=== PATIENT | male | born 1950 | race Hispanic/Latino ===

== ENCOUNTER 2020-08-25 10:43 | Inpatient (IN) | payer OTHER, SELFPAY ==
[2020-08-25] MEDS ORDERED: HYDRALAZINE HCL 20 MG/ML VIAL ONE (11:36)
[2020-08-25 11:41] LABS: Absolute Lymphocytes (CBC) 1.8 K/uL (0.7-4.9); Basophils % 0.7 % (0-1.3); Hematocrit 29.7 % (39.6-49.0); Lymphocytes % 22.2 % (15.3-44.8); MPV 9.2 fL (7.6-11.3); Protime INR 0.92; RBC Red Blood Cell Count 3.25 M/uL (4.33-5.43)
--- NOTE | 2020-08-25 11:48 | RAD REPORT ---
EXAM DESCRIPTION: CT - Head Brain Wo Cont - 08/25/2020 11:23 am CLINICAL HISTORY: Alteration of awareness/confusion COMPARISON: None TECHNIQUE: Computed axial tomography of the head was obtained. IV contrast was not requested. All CT scans are performed using dose optimization technique as appropriate and may include automated exposure control or mA/KV adjustment according to patient size. FINDINGS: An intracranial bleed is not seen . The ventricles are normal in caliber. No extra-axial fluid collection is noted. 3 centimeter low-density area posterior left frontal lobe. Low-density area left basal ganglia and left periventricular white matter has the appearance of old i nfarction. Fluid within the sinuses/ mastoids is not seen. IMPRESSION: 3 centimeter low-density area posterior left frontal lobe probably subacute infarction
[2020-08-25 11:56] LABS: ALT/SGPT 34 U/L (12-78); AST/SGOT 20 U/L (15-37); Albumin 3.6 g/dL (3.4-5.0); Alkaline Phosphatase 154 U/L (45-117); BUN Blood Urea Nitrogen 54 mg/dL (7-18); Bicarbonate 21 mmol/L (21-32); Bilirubin Direct < 0.1 mg/dL (0-0.2); Bilirubin Total 0.3 mg/dL (0.2-1.0); Glucose Level 345 mg/dL (74-106); Magnesium 2.3 mg/dL (1.8-2.4); NT PRO-BNP 7282 pg/mL (<125); Potassium 4.8 mmol/L (3.5-5.1); Protein, Total 7.3 g/dL (6.4-8.2); Sodium Level 137 mmol/L (136-145); Troponin (Emerg Dept Use Only) 0.03 ng/mL (0.0-0.045)
--- NOTE | 2020-08-25 12:35 | RAD REPORT ---
EXAM DESCRIPTION: US - UPPER EXTREMITY VENOUS UNILATE - 08/25/2020 11:59 am CLINICAL HISTORY: Right upper extremity swelling COMPARISON: None. FINDINGS: The right internal jugular, subclavian, brachial, axillary, cephalic, basilic, radial and ulnar veins demonstrate phasic signal. The veins are generally compressible. Doppler demonstrates good flow IMPRESSION: No evidence of thrombus involving the right upper extremity
--- NOTE | 2020-08-25 13:31 | RAD REPORT ---
EXAM DESCRIPTION: RAD - Chest Single View - 08/25/2020 1:22 pm CLINICAL HISTORY: altered mental status Chest pain. COMPARISON: No comparisons FINDINGS: Portable technique limits examination quality. The lungs are grossly clear. The heart is normal in size. No displaced fractures. IMPRESSION: No acute intrathoracic process suspected.
--- NOTE | 2020-08-25 13:31 | ER ---
Nurse's Notes [facility] Name: Mateo Head Age: 69 yrs Sex: Male : 1950 Arrival Date: 08/25/2020 Time: 10:53 Bed 2 Private MD: Diagnosis: Cerebral infarction;Unspecified kidney failure;Hypertensive heart disease Presentation: 08/25 10:54 Chief complaint: EMS states: His friend took him to the doctor because he's been jl7 altered x 2 days, only saying yes. Pt Polish speaking, reports via bass mechanism maker, inability to speak correctly x 6 days. Pt former dialysis pt, took himself off dialysis 1 month ago because he did not like it. 10:54 Care prior to arrival: IV initiated. 18 GA, in the left antecubital area, Glucose jl7 check: 400. 10:54 Acuity: BEVERLY 2 jl7 10:55 Coronavirus screen: Client denies travel out of the [place] in the last 14 days. At this sv time, the client does not indicate any symptoms associated with coronavirus-19. Ebola Screen: No symptoms or risks identified at this time. Risk Assessment: Do you want to hurt yourself or someone else? Patient reports no desire to harm self or others. Onset of symptoms was August 19, 2020. 10:55 Method Of Arrival: EMS: [facility] sv 10:57 Initial Sepsis Screen: Does the patient meet any 2 criteria? No. Patient's initial sv sepsis screen is negative. Does the patient have a suspected source of infection? No. Patient's initial sepsis screen is negative. Triage Assessment: 10:54 General: Appears in no apparent distress. uncomfortable, Behavior is cooperative, jl7 anxious. Pain: Denies pain. Neuro: Level of Consciousness is awake, alert, obeys commands, Oriented to person, place, time, situation, Speech with expressive aphasia noted, Facial symmetry appears normal. Cardiovascular: Patient's skin is warm and dry. Respiratory: Airway is patent Respiratory effort is even, unlabored, Respiratory pattern is regular, symmetrical. Derm: Skin is pink, warm \T\ dry. Historical: - Allergies: 10:57 No Known Allergies; sv - Home Meds: 10:57 atorvastatin 80 mg oral tab 1 tab nightly [Active]; Lasix 40 mg Oral tab 3 tabs once sv daily [Active]; Flomax 0.4 mg Oral cap 1 cap once daily [Active]; isosorbide mononitrate 30 mg Oral Tb24 1 tab once daily [Active]; - PMHx: 10:57 Hypertension; HD; sv 10:59 CVA; sv - Immunization history:: Client reports receiving the 2nd dose of the Covid vaccine, Client reports receiving the 1st dose of the Covid vaccine. - Social history:: Smoking status: Patient denies any tobacco usage or history of. Patient/guardian denies using alcohol. Screenin:56 Abuse screen: Denies threats or abuse. Denies injuries from another. Nutritional jl7 screening: No deficits noted. Tuberculosis screening: No symptoms or risk factors identified. Fall Risk IV access (20 points). Total Brewster Fall Scale indicates No Risk (0-24 pts). Assessment: 12:41 Reassessment: Patient appears in no apparent distress at this time. No changes from jl7 previously documented assessment. Patient and/or family updated on plan of care and expected duration. Pain level reassessed. Patient is alert, oriented x 3, equal unlabored respirations, skin warm/dry/pink. 14:25 Reassessment: Pt to MRI. sv Vital Signs: 10:54 BP 216 / 78; Pulse 71; Resp 15; Temp 97.7; Pulse Ox 100% ; Weight 68.04 kg; Pain 0/10; jl7 10:57 Pulse 73; Resp 16; Temp 97.7; Pulse Ox 100% ; Height 5 ft. 6 in. (167.64 cm); sv 11:30 BP 207 / 83; Pulse 70; Resp 18; Pulse Ox 100% ; sv 12:40 BP 186 / 88; Pulse 72; Resp 15; Pulse Ox 100% ; jl7 13:09 BP 195 / 82; Pulse 69; Resp 15; Pulse Ox 100% ; jl7 15:37 BP 180 / 86; Pulse 68; Resp 16; Pulse Ox 100% ; jl7 10:54 Body Mass Index 24.21 (68.04 kg, 167.64 cm) jl7 ED Course: 10:53 Patient arrived in ED. iw 10:53 Enrico Samuel PA is PHCP. cp 10:53 Enrico Cruz MD is Attending Physician. cp 10:55 Gabriela Henley RN is Primary Nurse. jl7 10:56 Patient has correct armband on for positive identification. Placed in gown. Bed in low jl7 position. Call light in reach. Side rails up X2. mailing specialist on. Pulse ox on. NIBP on. 10:57 Arm band placed on. sv 10:58 Maintain EMS IV. Dressing intact. Site clean \T\ dry. Gauge \T\ site: 18G L AC. sv 11:02 Triage completed. jl7 11:14 Initial lab(s) drawn, by me, sent to lab. First set of blood cultures drawn by me. jl7 11:15 EKG done, by ED staff, reviewed by Enrico SIEGEL. dh3 11:19 Magnesium Sent. sv 11:19 LFT's Sent. sv 11:19 CBC with Diff Sent. sv 11:19 Inserted saline lock: 20 gauge in right forearm, using aseptic technique. Blood jl7 collected. 11:19 Second set of blood cultures drawn by me. jl7 11:20 Basic Metabolic Panel Sent. sv 11:22 CT Head Brain wo Cont In Process Unspecified. EDMS 11:52 UPPER EXTREMITY VENOUS UNILATE In Process Unspecified. EDMS 12:55 X-ray(s) taken. sv 13:22 XRAY Chest (1 view) In Process Unspecified. EDMS 13:30 Butch Harrison MD is Hospitalizing Provider. cp 15:38 No provider procedures requiring assistance completed. Patient admitted, IV remains in jl7 place. intact, No redness/swelling at site. Administered Medications: 05:10 Drug: NS 0.9% 250 ml Route: IV; Rate: bolus; Site: left antecubital; jl7 15:35 Follow up: IV Status: Completed infusion; IV Intake: 500ml jl7 11:17 Drug: hydrALAZINE 10 mg Route: IVP; Site: right forearm; sv 12:41 Follow up: Response: No adverse reaction; Blood pressure is lowered jl7 13:25 Drug: foLIC Acid 1 mg Route: IVPB; Site: right forearm; jl7 13:26 Follow up: Response: No adverse reaction; IV Status: Completed infusion jl7 13:25 Drug: Aspirin Chewable Tablet 162 mg Route: PO; jl7 15:36 Follow up: Response: No adverse reaction jl7 13:25 Drug: hydrALAZINE 10 mg Route: IVP; Site: right forearm; jl7 15:36 Follow up: Response: No adverse reaction; Blood pressure is lowered jl7 Intake: 15:35 IV: 500ml; Total: 500ml. jl7 Outcome: 13:31 Decision to Hospitalize by Provider. cp 15:38 Admitted to Tele accompanied by tech, via wheelchair, room 211, with chart, Report jl7 called to ATIF Portillo 15:38 Condition: stable 15:38 Discharge instructions given to patient, Instructed on discharge instructions, follow up and referral plans. Demonstrated understanding of instructions, follow-up care. 16:07 Patient left the ED. jl7 Signatures: Dispatcher [employer] EDDigna Chin RN RN sv Williams, Irene, RN RN iw Enrico Samuel, PA PA Gabriela Laws RN RN jl7 [place] [facility] Corrections: (The following items were deleted from the chart) 15:39 15:38 Admitted to Tele accompanied by tech, via wheelchair, room 211, with chart, jl7 Report called to ATIF Kennedy7
--- NOTE | 2020-08-25 13:31 | EDPHYS ---
Physician Documentation [facility] Name: Mateo Heda Age: 69 yrs Sex: Male : 1950 Arrival Date: 08/25/2020 Time: 10:53 Bed 2 Private MD: ED Physician Enrico Cruz HPI: 08/25 11:05 This 69 yrs old Male presents to ER via EMS with complaints of Altered Mental cp Status. 11:05 The patient presents with confusion. cp 11:05 Onset: The symptoms/episode began/occurred at an unknown time. Possible causes: history cp of dialysis in the past. Associated signs and symptoms: Pertinent negatives: abdominal pain, agitation, chest pain, combativeness. Current symptoms: In the emergency department the patient's symptoms are unchanged from the initial presentation, despite EMS interventions. Patient's baseline: Neuro: alert and fully oriented, Motor: no deficits, Ambulation: walks without assistance, Speech: normal, The patient has a previous history of CVA, kidney failure. Historical: - Allergies: 10:57 No Known Allergies; sv - Home Meds: 10:57 atorvastatin 80 mg oral tab 1 tab nightly [Active]; Lasix 40 mg Oral tab 3 tabs once sv daily [Active]; Flomax 0.4 mg Oral cap 1 cap once daily [Active]; isosorbide mononitrate 30 mg Oral Tb24 1 tab once daily [Active]; - PMHx: 10:57 Hypertension; HD; sv 10:59 CVA; sv - Immunization history:: Client reports receiving the 2nd dose of the Covid vaccine, Client reports receiving the 1st dose of the Covid vaccine. - Social history:: Smoking status: Patient denies any tobacco usage or history of. Patient/guardian denies using alcohol. ROS: 11:08 Neuro: Positive for altered mental status, right arm weakness. cp 11:08 Constitutional: Negative for fever. cp 11:08 ENT: Negative for ear pain, sore throat, difficulty swallowing, difficulty handling secretions. 11:08 Cardiovascular: Negative for chest pain. 11:08 Respiratory: Negative for cough. 11:08 Abdomen/GI: Negative for abdominal pain, vomiting, diarrhea, constipation. 11:08 All other systems are negative. Exam: 11:14 ECG was reviewed by the Attending Physician. cp 11:15 Constitutional: The patient appears in no acute distress, alert, awake, cp non-diaphoretic, non-toxic, well developed, well nourished. 11:15 Head/Face: Normocephalic, atraumatic. cp 11:15 Eyes: Periorbital structures: appear normal, Pupils: equal, round, and reactive to light and accomodation, Extraocular movements: intact throughout, Conjunctiva: normal, no exudate, no injection, Sclera: no appreciated abnormality, Lids and lashes: appear normal, bilaterally. 11:15 ENT: External ear(s): are unremarkable, Nose: is normal, Mouth: Lips: moist, Oral mucosa: moist, Posterior pharynx: Airway: no evidence of obstruction, patent. 11:15 Neck: ROM/movement: is normal, is supple, without pain, no range of motions limitations, no meningismus. 11:15 Chest/axilla: Inspection: normal, Palpation: is normal, no crepitus, no tenderness. 11:15 Cardiovascular: Rate: normal, Rhythm: regular, JVD: is not appreciated. 11:15 Respiratory: the patient does not display signs of respiratory distress, Respirations: normal, no use of accessory muscles, no retractions, labored breathing, is not present, Breath sounds: are clear throughout, no decreased breath sounds, no stridor, no wheezing. 11:15 Abdomen/GI: Inspection: abdomen appears normal, Palpation: abdomen is soft and non-tender, in all quadrants. 11:15 Back: pain, is absent, ROM is normal. 11:15 Musculoskeletal/extremity: Extremities: grossly normal except: noted in the right hand: swelling, tenderness. 11:15 Skin: no rash present. 11:15 Neuro: Orientation: to person, situation, Mentation: able to follow commands, confused, Motor: moves all fours, strength is normal. Vital Signs: 10:54 BP 216 / 78; Pulse 71; Resp 15; Temp 97.7; Pulse Ox 100% ; Weight 68.04 kg; Pain 0/10; jl7 10:57 Pulse 73; Resp 16; Temp 97.7; Pulse Ox 100% ; Height 5 ft. 6 in. (167.64 cm); sv 11:30 BP 207 / 83; Pulse 70; Resp 18; Pulse Ox 100% ; sv 12:40 BP 186 / 88; Pulse 72; Resp 15; Pulse Ox 100% ; [facility] 13:09 BP 195 / 82; Pulse 69; Resp 15; Pulse Ox 100% ; 7 15:37 BP 180 / 86; Pulse 68; Resp 16; Pulse Ox 100% ; 7 10:54 Body Mass Index 24.21 (68.04 kg, 167.64 cm) [facility] MDM: 11:00 Patient medically screened. juan david 11:03 ED course: patient is not a candidate for tpa as onset of altered mental status and cp right arm weakness unknown. 11:30 Differential Diagnosis: CVA, electrolyte abnormality, overdose, volume depletion. 13:30 Data reviewed: vital signs, nurses notes, lab test result(s), EKG, radiologic studies, cp CT scan. 13:30 Test interpretation: by ED physician or midlevel provider: ECG. 13:35 Physician consultation: Butch Harrison MD was called at 13:30, was contacted at 13:30, cp regarding admission, to the telemetry unit. patient's condition. 08/25 11:01 Order name: Basic Metabolic Panel 08/25 11:01 Order name: CBC with Diff 08/25 11:01 Order name: LFT's 08/25 11:01 Order name: Magnesium 08/25 11:01 Order name: NT PRO-BNP; Complete Time: 12:54 08/25 12:54 Interpretation: Abnormal: NT PRO-BNP 7282. 08/25 11:01 Order name: PT-INR; Complete Time: 12:54 08/25 11:01 Order name: Troponin (emerg Dept Use Only); Complete Time: 12:54 08/25 11:01 Order name: AMMONIA; Complete Time: 12:54 08/25 11:01 Order name: Lactate; Complete Time: 12:54 08/25 11:01 Order name: Procalcitonin; Complete Time: 13:09 08/25 11:01 Order name: Blood Culture Adult (2) 08/25 11:01 Order name: Urine Microscopic Only 08/25 11:02 Order name: Basic Metabolic Panel; Complete Time: 12:54 EDMS 08/25 12:57 Interpretation: Normal except: CL 109; GLUC 345; BUN 54; CRE 3.66; GFR 17; CA 8.3. 08/25 11:02 Order name: CBC with Automated Diff; Complete Time: 12:54 EDMS 08/25 12:58 Interpretation: Normal except: RBC 3.25; HGB 10.1; HCT 29.7. cp 08/25 11:01 Order name: XRAY Chest (1 view); Complete Time: 13:40 cp 08/25 11:01 Order name: EKG; Complete Time: 11:02 cp 08/25 11:01 Order name: Cardiac monitoring; Complete Time: 11:04 cp 08/25 11:01 Order name: EKG - Nurse/Tech; Complete Time: 11:04 cp 08/25 11:01 Order name: CT Head Brain wo Cont; Complete Time: 12:54 cp 08/25 11:02 Order name: Liver (Hepatic) Function; Complete Time: 12:54 EDMS 08/25 13:30 Interpretation: Normal except: ALK 154; GLOB 3.7; A/G 1.0. cp 08/25 11:02 Order name: Magnesium; Complete Time: 12:54 EDMS 08/25 11:04 Order name: UPPER EXTREMITY VENOUS UNILATE; Complete Time: 12:54 EDMS 08/25 15:50 Order name: MRI; Complete Time: 15:52 EDMS 08/25 15:56 Order name: MRI EDMS 08/25 11:01 Order name: IV Saline Lock; Complete Time: 11:20 cp 08/25 11:01 Order name: Labs collected and sent; Complete Time: 11:20 cp 08/25 11:01 Order name: O2 Per Protocol; Complete Time: 11:20 cp 08/25 11:01 Order name: O2 Sat Monitoring; Complete Time: 11:20 cp EC:14 Rate is 70 beats/min. Rhythm is regular. RI interval is normal. QRS interval is cp prolonged at 102 msec. QT interval is normal. Interpreted by me. Reviewed by me. Administered Medications: 05:10 Drug: NS 0.9% 250 ml Route: IV; Rate: bolus; Site: left antecubital; jl7 15:35 Follow up: IV Status: Completed infusion; IV Intake: 500ml jl7 11:17 Drug: hydrALAZINE 10 mg Route: IVP; Site: right forearm; sv 12:41 Follow up: Response: No adverse reaction; Blood pressure is lowered jl7 13:25 Drug: foLIC Acid 1 mg Route: IVPB; Site: right forearm; jl7 13:26 Follow up: Response: No adverse reaction; IV Status: Completed infusion jl7 13:25 Drug: Aspirin Chewable Tablet 162 mg Route: PO; jl7 15:36 Follow up: Response: No adverse reaction jl7 13:25 Drug: hydrALAZINE 10 mg Route: IVP; Site: right forearm; jl7 15:36 Follow up: Response: No adverse reaction; Blood pressure is lowered jl7 Disposition: 14:00 Chart complete. cp Disposition: 08/25/20 13:31 Hospitalization ordered by Butch Harrison for Inpatient Admission. Preliminary diagnosis are Cerebral infarction, Unspecified kidney failure, Hypertensive heart disease. - Bed requested for Telemetry/MedSurg (Inpatient). - Status is Inpatient Admission. jl7 - Condition is Stable. - Problem is new. - Symptoms are unchanged. Addendum: 08/26/2020 21:08 Co-signature as Attending Physician, Enrico Cruz MD I agree with the assessment and c briceno plan of care. Signatures: Dispatcher [facility] Digna Keller, RN Enrico Gregorio MD MD cha Page, Corey, PA PA cp Leal, Jahala, RN RN Keri Farooq Corrections: (The following items were deleted from the chart) 08/25 11:04 11:03 Extremity Venous Uni Ltd+[id number].RAD.BRZ ordered. [facility] ED[facility] 12:57 12:54 Normal except: CL 109; GLUC 345; BUN 54; CRE 3.66; GFR 17. cp cp 13:31 13:31 Hospitalization Ordered by Butch Harrison MD for Inpatient Admission. Preliminary cp diagnosis is Cerebral infarction. Bed requested for Telemetry/MedSurg (Inpatient). Status is Inpatient Admission. Condition is Stable. Problem is new. Symptoms are unchanged. cp 14:01 13:31 08/25/2020 13:31 Hospitalization Ordered by Butch Harrison MD for Inpatient eb Admission. Preliminary diagnosis is Cerebral infarction; Unspecified kidney failure; Hypertensive heart disease. Bed requested for Telemetry/MedSurg (Inpatient). Status is Inpatient Admission. Condition is Stable. Problem is new. Symptoms are unchanged. cp 16:07 14:01 08/25/2020 13:31 Hospitalization Ordered by Butch Harrison MD for Inpatient jl7 Admission. Preliminary diagnosis is Cerebral infarction; Unspecified kidney failure; Hypertensive heart disease. Bed requested for Telemetry/MedSurg (Inpatient). Status is Inpatient Admission. Condition is Stable. Problem is new. Symptoms are unchanged. eb
[2020-08-25] MEDS ORDERED: ASPIRIN 81 MG CHEWABLE TABLET ONE (13:41)
[2020-08-25] MEDS ORDERED: FOLIC ACID 5 MG/ML VIAL ONE (13:42)
[2020-08-25] MEDS ORDERED: NA CHLORIDE 0.9% 250 ML ONE (14:59)
[2020-08-25] MEDS ORDERED: ENOXAPARIN 40 MG/0.4 ML SQ SCH (15:00)
[2020-08-25] MEDS ORDERED: GLUCAGON 1 MG/VIAL IM PRN (15:12)
--- NOTE | 2020-08-25 15:27 | P.HP ---
Certification for Inpatient Patient admitted to: Inpatient With expected LOS: >2 Midnights Patient will require the following post-hospital care: Home Health Services Practitioner: I am a practitioner with admitting privileges, knowledge of patient current condition, hospital course, and medical plan of care. Services: Services provided to patient in accordance with Admission requirements found in Title 42 Section 412.3 of the Code of Federal Regulations Patient History Date of Service: 08/25/20 Primary Care Provider: Hunter Reason for admission: CVA History of Present Illness: Patient came into the office today He has stopped taking his dialysis about a month ago Has removed his cather. The patient was not able to speak at all. Was not able to write legible to tell us what was going on The patients neighbor (Lowell Johnson [phone]) came and stated this has been going on for the past 2 days. Ambulance was called and the patient was taken to [facility]. Found to have a subacute infract infract on ct. Decided to admit. Home medications list reviewed: Yes (isosobide moonitrate 30mg, atorvastatin 80g, tamusolin 0.4 mg, lasix 40mg) Review of Systems General: Weakness Neurological: Weakness, Incoordination, Change in Speech Physical Examination - Physical Exam General: Moderate distress HEENT: Atraumatic, PERRLA, Mucous membr. moist/pink, EOMI, Sclerae nonicteric Neck: Supple, 2+ carotid pulse no bruit, No LAD, Without JVD or thyroid abnormality Respiratory: Clear to auscultation bilaterally, Normal air movement Cardiovascular: Regular rate/rhythm, Normal S1 S2 Gastrointestinal: Normal bowel sounds, No tenderness Musculoskeletal: No tenderness Integumentary: No rashes Neurological: Normal tone, Normal affect, Abnormal gait, Abnormal speech, Abnormal strength Lymphatics: No axilla or inguinal lymphadenopathy - Studies Laboratory Data (last 24 hrs) 08/25/20 11:19: PT 10.6, INR 0.92 08/25/20 11:19: WBC 8.00, Hgb 10.1 L, Hct 29.7 L, Plt Count 265 08/25/20 11:19: Sodium 137, Potassium 4.8, BUN 54 H, Creatinine 3.66 H, Glucose 345 H, Magnesium 2.3, Total Bilirubin 0.3, AST 20, ALT 34, Alkaline Phosphatase 154 H Assessment and Plan - Problems (Diagnosis) (1) CVA (cerebral vascular accident) Current Visit: Yes Status: Acute Plan: Will admitt to the telemetry Order a mri. Consult Dr. Holman. Will start folic acid. Will start bp treatment in the morning. However for now we may be using permissive hypercapnia Qualifiers: CVA mechanism: unspecified Qualified Code(s): I63.9 - Cerebral infarction, unspecified (2) ESRD (end stage renal disease) Current Visit: Yes Status: Chronic Plan: Patient has been refusing dialysis recently and removed his catheter. The patient was referred to Dr Schaeffer and did not follow up with him. Will consult him and see if he will accept dialysis at this time. (3) HTN (hypertension) Current Visit: Yes Status: Chronic Plan: Will restart isosorbide in the morning. (4) Diabetes 1.5, managed as type 2 Current Visit: Yes Status: Acute Plan: Patient had a fasting sugar of 300 He had not given a history of diabetes in the past. will start hm on a sliding scale. start detention insulin when he s tarts eating Discharge Plan: Home Plan to discharge in: 48 Hours - Advance Directives Does patient have a Living Will: No Does patient have a Durable POA for Healthcare: No - Code Status/Comfort Care Code Status Assessed: Yes Code Status: Full Code Physician Review: Patient Assessed, Agree with Above Assessment and Plan Critical Care: No Time Spent Managing Pts Care (In Minutes): 75
[2020-08-25] MEDS ORDERED: D50W 25 GM/50 ML VIAL IV PRN (15:32)
--- NOTE | 2020-08-25 15:49 | RAD REPORT ---
EXAM DESCRIPTION: MRI - Brain Wo Cont - 08/25/2020 2:57 pm CLINICAL HISTORY: possible stroke Headache, drowsiness, CVA symptomology COMPARISON: MRA Head Wo Cont dated 08/25/2020; Head Brain Wo Cont dated 08/25/2020 TECHNIQUE: Multi-sequence, multiplanar MR imaging of the brain was performed without contrast. FINDINGS: No intracranial hemorrhage, hydrocephalus or extra-axial fluid collections. No midline milagros ft or mass. Areas of mildly restricted diffusion are seen in the distribution of left middle cerebral artery and the left posterior parietal region. The majority of these areas shows slight diminished A DC map signal likely indicating acute to subacute time frame nonhemorrhagic infarcts. Midline structures are normally formed. Mastoid air cells and paranasal sinuses are clear. IMPRESSION: Moderate sized area of acute to subacute time frame left MCA territory infarct seen. No hemorrhagic component or midline shift.
--- NOTE | 2020-08-25 15:56 | RAD REPORT ---
EXAM DESCRIPTION: MRI - MRA Head Wo Cont - 08/25/2020 2:48 pm CLINICAL HISTORY: cerebral infarction CVA COMPARISON: <Comparisons> FINDINGS: 3D noncontrast [id number] MR angiography of the [place] of [place] was performed. No vascular malformation or aneurysm is suspected. Attenuated flow is noted in the left middle cerebr al artery branches relative to the right although large vessel occlusion is not seen. The left verteb ral artery is mildly dominant. The visualized dural venous sinuses appear patent. IMPRESSION: Attenuated flow is noted in the left middle cerebral artery relative to the right likely due to atherosclerotic disease.
[2020-08-25] MEDS ORDERED: INSULIN -REGULAR HUMAN 50 UNIT/0.5 ML ML SQ SCH (16:30)
[2020-08-25] MEDS: INSULIN -REGULAR HUMAN 50 UNIT/0.5 ML ML SQ SCH ×2 (16:30→21:00)
--- NOTE | 2020-08-25 17:00 | P.PN ---
Date of Service: 08/25/20 patient in room. Informed him that he had a stoke. He still refuses dialysis. He does not want cpr or intubation. Will make him dnr
--- NOTE | 2020-08-25 17:08 | RAD REPORT ---
EXAM DESCRIPTION: US - CP - 08/25/2020 4:55 pm CLINICAL HISTORY: cerebral infarction Headache, drowsiness, CVA symptomology COMPARISON: MRA Head Wo Cont dated 08/25/2020; Brain Wo Cont dated 08/25/2020 TECHNIQUE: Real-time sonographic evaluation of both carotid systems was performed. Doppler interroga tion was performed with waveform tracing bilaterally. FINDINGS: Normal high resistance waveforms are noted in both external carotid arteries. The common c arotid arteries and internal carotid arteries show normal low resistance waveforms. There is mild to moderate soft plaque right carotid bulb resulting in elevated proximal right ICA adama ocity 172 cm/second. Mild soft plaque is present left carotid bulb without significant velocity eleva tion. Antegrade flow seen in both vertebral arteries. IMPRESSION: Soft plaquing is present in both carotid bulbs, greater on the right. Mild stenosis 50-70% is suspected at the level of the right carotid bulb based on elevated peak systo lic velocity. NASCET criteria utilized.
[2020-08-25 18:06] VITALS: BMI 24.2
[2020-08-25] MEDS: NA CHLORIDE 0.9% 1,000 ML IV SCH (19:50)
[2020-08-25] MEDS: ENOXAPARIN 30 MG/0.3 ML SQ SCH (19:51)
[2020-08-25] MEDS: FOLIC ACID 1 MG TABLET PO SCH (19:51)
--- NOTE | 2020-08-25 21:37 | CON ---
Reason For Consultation: Consultation called because of stroke. History Of Present Illness: Mr. Head is a 69-year-old right-handed patient, who is curr ently on hemodialysis, but removed his dialysis catheter months ago and is not doing dialysis, who co mes to [facility] after he was noted by a friend or a neighbor to be incoherent and had some right hand and face weakness for at least 2 days prior to his admission today. His head CT scan ava ntified a 3 cm area of low density in the left frontal lobe representing a possible subacute stroke. Brain MRI showed a moderate-sized area of subacute infarct on the left MCA territory in the frontal region. There was no midline shift. No hemorrhagic component. The MRA of his head showed attenuate d flow in the left middle cerebral artery relative to the right side, likely due to arthrosclerotic c hanges and neck MRA is pending. Despite the patient's stroke, his proximal right upper extremity is actually at least 4/5 distally for hand and finger flexion-extension around 3/5. Past Medical History: As noted including hypertension, prior stroke, dyslipidemia. Allergies: NO KNOWN DRUG ALLERGIES. Medications: At home, atorvastatin 10 mg daily, Lasix 40 mg daily, Flomax 0.4 mg daily, isosorbide 3 0 mg daily. Family History: Noncontributory. Social History: Denies any alcohol, tobacco, or drug abuse. Review of Systems: No other positives have been mentioned. Physical Examination: Vital Signs: Blood pressure 197/86, pulse 70, respiratory rate 18, temperature 97.6, oxygen saturati on 100% on room air. Weight 150 pounds, height 5 feet 6 inches. General: Mr. Head is resting in bed. He communicates mostly in English. HEENT: He appears normocephalic, atraumatic. Sclerae anicteric. Oropharynx is pink and moist. Neck: Supple. Chest: Clear. Heart: Regular. Extremities: No edema or cyanosis. Neurological: He is alert and oriented to situation and place. Follows commands appropriately. Aga in communicating in English. Cranial nerves show right nasolabial fold decreased with fair excursion , otherwise unremarkable. His motor examination in the right proximal upper extremity 4/5 distal, 3/ 5 for biceps, triceps, brachioradialis proximally and for wrist and finger flexion-extension distally ; on the left side 5/5 proximally and distally; in the lower extremities on the right 4/5 proximally and distally and on the left 5/5. Sensation intact in the left and right upper and lower extremities . Coordination intact in upper and lower extremities. Reflexes symmetric in the upper and lower ext remities. Gait, he will be ambulated with the physical therapist. Laboratory Studies: Complete blood count with differential shows slightly low hemoglobin, otherwise unremarkable. Coagulation panel is normal. Chemistries show creatinine 3.66, glucose of 191. Liver function studies show elevated alkaline phosphorus of 154. Procalcitonin is normal. Urinalysis pen ding. His carotid artery ultrasound shows soft plaque in both carotid arteries, greater on the right with mild thickened stenosis at the right carotid bulb. Extremity Doppler study showed no evidence of deep vein thrombosis in the right upper extremity. Assessment: Mr. Head is a 69-year-old patient with multiple stroke risk factors including hypert ension, diabetes mellitus, end-stage renal disease, prior stroke, who has a subacute left middle cere bral artery anterior distribution stroke with right-sided face arm residual weakness and leg weakness as well. Plan: 1.Aggressive management of hypertension. 2.Aggressive management of diabetes mellitus. 3.The patient may be evaluated for inpatient rehabilitation including speech, physical and occupatio nal therapy. 4.He should be on aspirin 81 mg daily and Plavix 75 mg daily, folic acid 1 mg daily. Use Lovenox 30 mg daily for DVT prophylaxis and maintain tight blood sugar control. Keep blood pressures at this p oint below 170 systolic. The patient will be followed in the inpatient rehabilitation unit. CATA/MAREK Voice ID: [id number] Report ID: [id number]
[2020-08-26] MEDS: NA CHLORIDE 0.9% 1,000 ML IV SCH ×2 (03:20→19:56)
--- NOTE | 2020-08-26 06:58 | EKG ---
Test Date: 2020-08-25 Test Time: 11:10:22 Administrative Intern: JUSTIN MEASUREMENT RESULTS: Intervals: Rate: 70 IL: 194 QRSD: 102 QT: 386 QTc: 416 [place]: P: 63 IL: 194 QRS: 42 T: 123 INTERPRETIVE STATEMENTS: Normal sinus rhythm Nonspecific T wave abnormality Abnormal ECG No previous ECG available for comparison Electronically Signed On 08-26-20 06:56:27 CDT by Corey Hassan
[2020-08-26 07:03] LABS: Basophils % 0.8 % (0-1.3); Hematocrit 29.1 % (39.6-49.0); Lymphocytes % 25.6 % (15.3-44.8); MPV 9.1 fL (7.6-11.3); RBC Red Blood Cell Count 3.19 M/uL (4.33-5.43)
[2020-08-26 07:25] LABS: Albumin 3.1 g/dL (3.4-5.0); Bilirubin Total 0.4 mg/dL (0.2-1.0); Potassium 4.7 mmol/L (3.5-5.1); Protein, Total 6.5 g/dL (6.4-8.2)
[2020-08-26] MEDS: INSULIN -REGULAR HUMAN 50 UNIT/0.5 ML ML SQ SCH ×4 (07:30→21:39)
[2020-08-26 07:34] LABS: CKMB Creatine Kinase MB 3.1 ng/mL (1.0-3.6); Troponin I 0.02 ng/mL (0.0-0.045)
[2020-08-26] MEDS: FOLIC ACID 1 MG TABLET PO SCH ×2 (08:57→20:21)
[2020-08-26] MEDS: ASPIRIN EC 81 MG TAB PO SCH (08:57)
[2020-08-26] MEDS: CLOPIDOGREL 75 MG TABLET PO SCH (08:57)
--- NOTE | 2020-08-26 11:38 | CON ---
Date of Consultation: 08/26/2020 Reason For Consultation: Elevated BUN and creatinine, fluid management, hypertension. History Of Present Illness: This is a pleasant 69-year-old gentleman with significant past medical h istory of diabetes complicated with neuropathy, nephropathy, hypertension, hyperlipidemia, CVA, chron ic kidney disease, status post acute kidney injury back in early this year, required dialysis, christy lewis on dialysis for 2-3 month, then the patient stopped his dialysis almost 1 month ago. The patien t was poorly compliant. The patient continued to have good urine output. Apparently, the patient vi sited to his primary care office and found to have CVA. For that reason, the patient was directed to the hospital. Primary workup showed subacute infarction. Blood pressure was renetta high and elevation in BUN and creatinine. For that reason, we have been consulted. The patient denied taking any nons teroidal. No IV contrast. The patient is still maintaining good urine output. Upon arrival to the hospital, creatinine 3.6, currently creatinine down to 2.9. GFR was 17, currently 21. Past Medical History: 1.CVA. 2.Diabetes complicated with neuropathy and nephropathy. 3.Hypertension. 4.Chronic kidney disease, stage IV, status post acute kidney injury secondary to hypertension requir ed dialysis, weaned from dialysis. 5.Hyperlipidemia. Home Medications: Include isosorbide, Flomax, Lasix, atorvastatin. Current Medications: In the hospital include aspirin, Plavix, folic acid, insulin. Past Surgical History: Includes PermCath placement and removal. Family History: Positive for hypertension and diabetes. Social History: Denies smoking. Denies drinking. Denied drugs abuse. Review of Systems: Head and neck: Has headache. GI: Has nausea. No vomiting. : No polyuria. No dysuria. No hematuria. BID CLERK: Not applicable. Respiratory: No shortness of breath. Cardiovascular: No chest pain. Endocrine: No polydipsia. Skin: No rash. Neuro: Has altered mental status. Has slurred speech. Musculoskeletal: Generalized fatigue. Physical Examination: Vital Signs: Blood pressure 199/88, pulse of 58, afebrile. Chest: Clear to auscultation. Heart: S1, S2. Regular. Abdomen: Soft, nontender. Extremities: No edema. Neurologic: Alert and oriented to place. Follow command. Has weakness on the right upper extremity . Laboratory Data: Sodium 144, potassium 4.7, bicarb 22, BUN 48, creatinine 2.9. GFR 21, calcium 7.9, albumin 3.4. WBC 8, H and H 10/29.1, platelets 257. Urinalysis not obtained. Assessment And Plan: 1.Chronic kidney disease, stage IV, required dialysis before. Nonoliguric. No hyperkalemia. No ac idosis with acute kidney injury. I do not see the need to resume dialysis right now. I am going to continue current hydration and we will monitor the patient closely. I going to go ahead and send for PTH and vitamin D to evaluate further on the patient and with the presence of the anemia. I am rita g to send for serum protein electrophoresis when we will follow up the patient. 2.Hypertension, not controlled with the presence of cerebrovascular accident, subacute infarction. I am going to start the patient on calcium channel ariadna and low dose of beta ariadna with clonidin e to establish better blood pressure control. I going to avoid LESVIA inhibitor or ARB given the acute kidney injury. I agree with holding the Lasix for the time being. We will decrease IV fluid to 50 a nd we will monitor the patient. 3.Anemia of chronic kidney disease. We will send for serum protein electrophoresis and anemia brent p. 4.Diabetes as by primary. 5.Cerebrovascular accident as by primary. Thank you Dr. Harrison for allowing us to participate in the care of your patient. Case discussed with the patient, verbalized understanding with the help of the drying frame operator. Time spent discussing with th e patient, examining the patient [id number], placing order, reviewing data, and discussing with [facility] subspecialty including hospitalist and PCP Dr. Harrison and Neurology 45 minutes. RICK/MAREK Voice ID: [id number] Report ID: [id number]
--- NOTE | 2020-08-26 12:27 | P.PN ---
Subjective Date of Service: 08/26/20 Primary Care Provider: Hunter Chief Complaint: CVA Subjective: Improving (he complaints about difficulty with memory) Review of Systems 10-point ROS is otherwise unremarkable Neurological: Confusion Physical Examination - Vital Signs Temperature: 97.3 F Blood Pressure: 199/88 Pulse: 58 Respirations: 18 Pulse Ox (%): 99 - Physical Exam General: Alert, In no apparent distress HEENT: Atraumatic, PERRLA, EOMI Neck: Supple, JVD not distended Respiratory: Clear to auscultation bilaterally, Normal air movement Cardiovascular: Regular rate/rhythm, Normal S1 S2 Gastrointestinal: Normal bowel sounds, No tenderness Musculoskeletal: No tenderness, Other (chronic skin changes of the feet. Poor dorsalis pedis. He has a surgically missing the left 5th toe) Integumentary: No rashes Neurological: Normal speech, Normal tone, Normal affect Lymphatics: No axilla or inguinal lymphadenopathy Assessment & Plan - Problems (Diagnosis) (1) CVA (cerebral vascular accident) Current Visit: Yes Status: Acute Plan: Will admitt to the telemetry Order a mri. Consult Dr. Holman. Will start folic acid. Will start bp treatment in the morning. However for now we may be using permissive hypercapnia 08/26 plans as per Manda. will keep him tilll Friday for speach and swallow evaluation. nursing states he has difficulty with large mouths of water. He can manage sips. Qualifiers: CVA mechanism: unspecified Qualified Code(s): I63.9 - Cerebral infarction, unspecified (2) ESRD (end stage renal disease) Current Visit: Yes Status: Chronic Plan: Patient has been refusing dialysis recently and removed his catheter. The patient was referred to Dr Schaeffer and did not follow up with him. Will consult him and see if he will accept dialysis at this time. 08/26 he has improving kidney function. Is making urine. No plans to restart dialysis as per Dr. Rodgers (3) HTN (hypertension) Current Visit: Yes Status: Chronic Plan: Will restart isosorbide in the morning. (4) Diabetes 1.5, managed as type 2 Current Visit: Yes Status: Acute Plan: Patient had a fasting sugar of 300 He had not given a history of diabetes in the past. will start hm on a sliding scale. start terminal manager insulin when he starts eating 08/26 Chronic changes of the feet. He had a surgical ampuatation of the left 5th toe. (5) Right hand pain Current Visit: Yes Status: Acute Plan: has been going on for a while. However will order xrays. His neighbor stated he had a fracture a while ago. (6) Code status needs review Current Visit: Yes Status: Acute Plan: Have brought Mrs Navarrete STAFF RADIATION THERAPIST who is fluent in [place]ese to address his code status. He does not want dialysis. However does not wish to be dnr. Will change him back to full code Discharge Plan: Home Plan to discharge in: Greater than 2 days - Code Status/Comfort Care Code Status Assessed: Yes Code Status: Full Code Physician Review: Patient Assessed, Agree with Above Assessment and Plan Critical Care: No Time Spent Managing Pts Care (In Minutes): 30
[2020-08-26] MEDS: cloNIDine HCL 0.1 MG TAB PO SCH ×2 (13:07→20:20)
--- NOTE | 2020-08-26 14:22 | RAD REPORT ---
EXAM DESCRIPTION: US - Renal Ultrasound-Complete - 08/26/2020 1:31 pm CLINICAL HISTORY: CKD COMPARISON: No comparisons FINDINGS: The right kidney measures approximately 8.2 x 4.4 cm. The left kidney measures approximat guille 10.0 x 6.3 cm. Renal cortical thickness and echogenicity are normal. No hydronephrosis or suspici ous renal mass. A 3 centimeter oval cystic area in the left renal hilum is believed to be centrally p ositioned cortical cyst or possibly parapelvic cyst. No bladder wall thickening or mass. No intraluminal stone or mass. IMPRESSION: No hydronephrosis or suspicious renal mass. A 3 centimeter benign cystic mass is seen in the central left hilum. This is not believed be hydronep hrosis.
--- NOTE | 2020-08-26 14:26 | RAD REPORT ---
EXAM DESCRIPTION: RAD - Wrist Right 3 View - 08/26/2020 1:44 pm CLINICAL HISTORY: hand pain COMPARISON: No comparisons FINDINGS: No fracture is identified. There is no dislocation or periosteal reaction noted. Mild carp al bone degenerative changes are present. Arterial tree calcifications are seen. IV tubing overlies t he dorsum of the wrist. No foreign body or other soft tissue abnormality. IMPRESSION: Negative right wrist examination for acute finding.
--- NOTE | 2020-08-26 14:32 | RAD REPORT ---
EXAM DESCRIPTION: RAD - Hand Right 3 View - 08/26/2020 1:44 pm CLINICAL HISTORY: hand pain COMPARISON: No comparisonsNone. FINDINGS: No fracture is identified. There is no dislocation or periosteal reaction noted. Mild dege nerative change seen in the carpal bones. No foreign body or significant soft tissue abnormality. IMPRESSION: Negative right hand examination.
--- NOTE | 2020-08-26 14:32 | RAD REPORT ---
EXAM DESCRIPTION: RAD - Chest Single View - 08/26/2020 1:44 pm CLINICAL HISTORY: COPD COMPARISON: Portable August 25 TECHNIQUE: AP portable chest image was obtained 08/26/2020 1:44 pm . FINDINGS: Lungs are clear. Heart and vasculature are normal. No measurable pleural effusion and no p neumothorax. No acute bony abnormality seen. No acute aortic findings suspected. IMPRESSION: No acute cardiopulmonary process. No significant change from comparison study.
[2020-08-26] MEDS: ENOXAPARIN 30 MG/0.3 ML SQ SCH (17:00)
[2020-08-26] MEDS: carvediloL 3.125 MG TAB PO SCH (18:10)
[2020-08-26 19:41] LABS: Urine Appearance CLEAR (Clear); Urine Bilirubin NEGATIVE (Negative); Urine Blood TRACE (Negative); Urine Color YELLOW (Yellow); Urine Glucose 2+ (Negative); Urine Protein 3+ (Negative); Urine Specific Gravity 1.015 (1.005-1.030); Urine Urobilinogen 0.2 mg/dL (0.2-1.0)
[2020-08-26] MEDS ORDERED: HYDRALAZINE HCL 20 MG/ML VIAL IV PRN (19:45)
[2020-08-26 20:12] LABS: Urine Microscopic Reflex ORDER UMIC
[2020-08-26 20:13] LABS: Urine Bacteria <20 /HPF (NONE SEEN); Urine RBC <5 /HPF (NONE SEEN)
[2020-08-26] MEDS: ATORVASTATIN 80 MG TAB PO SCH (20:21)
[2020-08-27] MEDS: NA CHLORIDE 0.9% 1,000 ML IV SCH (05:18)
[2020-08-27] MEDS: carvediloL 3.125 MG TAB PO SCH ×2 (05:19→17:45)
[2020-08-27 06:29] LABS: Urine Protein/Creatinine Ratio 3.64 ratio (<0.15)
[2020-08-27] MEDS: INSULIN -REGULAR HUMAN 50 UNIT/0.5 ML ML SQ SCH ×4 (07:30→20:48)
[2020-08-27 07:40] LABS: Absolute Lymphocytes (CBC) 1.3 K/uL (0.7-4.9); Hematocrit 27.5 % (39.6-49.0); Lymphocytes % 20.4 % (15.3-44.8)
[2020-08-27 07:42] LABS: RBC Red Blood Cell Count 2.97 M/uL (4.33-5.43)
[2020-08-27 08:19] LABS: Bilirubin Total 0.4 mg/dL (0.2-1.0); Potassium 4.6 mmol/L (3.5-5.1); Protein, Total 6.4 g/dL (6.4-8.2)
[2020-08-27] MEDS: CLOPIDOGREL 75 MG TABLET PO SCH (09:57)
[2020-08-27] MEDS: cloNIDine HCL 0.1 MG TAB PO SCH ×3 (09:57→20:47)
[2020-08-27] MEDS: ASPIRIN EC 81 MG TAB PO SCH (09:57)
[2020-08-27] MEDS: ISOSORBIDE MONO SR 30 MG TAB PO SCH (09:58)
[2020-08-27] MEDS: TAMSULOSIN 0.4 MG SR CAP PO SCH (09:58)
[2020-08-27] MEDS: FOLIC ACID 1 MG TABLET PO SCH ×2 (09:58→20:47)
[2020-08-27] MEDS: AMLODIPINE 10 MG TAB PO SCH (09:58)
[2020-08-27 10:40] LABS: BUN Blood Urea Nitrogen 48 mg/dL (7-18); Bicarbonate 23 mmol/L (21-32); Ferritin 549.2 ng/mL (26-388); Folic Acid, (Folate) > 20.0 ng/mL (3.1-17.5); Glucose Level 139 mg/dL (74-106); Phosphorus 3.3 mg/dL (2.5-4.9); Potassium 4.6 mmol/L (3.5-5.1); Sodium Level 145 mmol/L (136-145); Transferrin 148 mg/dL (200-360); Uric Acid 7.9 mg/dL (3.5-7.2)
--- NOTE | 2020-08-27 15:46 | P.PN ---
Subjective Date of Service: 08/27/20 Primary Care Provider: Hunter Chief Complaint: CVA Subjective: No new changes (patient has eaten a little more of his lunch) Review of Systems 10-point ROS is otherwise unremarkable Neurological: Confusion (he is having difficulty with his memory. Yesterday he could not remember Mrs Navarrete from the day before) Physical Examination - Vital Signs Temperature: 97.3 F Blood Pressure: 166/74 Pulse: 64 Respirations: 18 Pulse Ox (%): 98 - Physical Exam General: Alert, In no apparent distress HEENT: Atraumatic, PERRLA, EOMI Neck: Supple, JVD not distended Respiratory: Clear to auscultation bilaterally, Normal air movement Cardiovascular: Regular rate/rhythm, Normal S1 S2 Gastrointestinal: Normal bowel sounds, No tenderness Musculoskeletal: No tenderness Integumentary: No rashes Neurological: Normal speech, Normal tone, Normal affect Lymphatics: No axilla or inguinal lymphadenopathy Assessment & Plan - Problems (Diagnosis) (1) CVA (cerebral vascular accident) Current Visit: Yes Status: Acute Plan: Will admitt to the telemetry Order a mri. Consult Dr. Holman. Will start folic acid. Will start bp treatment in the morning. However for now we may be using permissive hypercapnia 08/27 Will keep him here today. Have a speach evaluation tomorrow and swallow studies. Qualifiers: CVA mechanism: unspecified Qualified Code(s): I63.9 - Cerebral infarction, unspecified (2) ESRD (end stage renal disease) Current Visit: Yes Status: Chronic Plan: Patient has been refusing dialysis recently and removed his catheter. The patient was referred to Dr Schaeffer and did not follow up with him. Will consult him and see if he will accept dialysis at this time. 08/27 Normal kidney ultrasound. (3) HTN (hypertension) Current Visit: Yes Status: Chronic Plan: Will restart isosorbide in the morning. (4) Diabetes 1.5, managed as type 2 Current Visit: Yes Status: Acute Plan: Patient had a fasting sugar of 300 He had not given a history of diabetes in the past. will start hm on a sliding scale. start superintendent marine oil terminal insulin when he starts eating 08/26 Chronic changes of the feet. He had a surgical ampuatation of the left 5th toe. (5) Right hand pain Current Visit: Yes Status: Acute Plan: has been going on for a while. However will order xrays. His neighbor stated he had a fracture a while ago. 08/27 Xrays of the hand are normal Discharge Plan: Home Plan to discharge in: 48 Hours - Code Status/Comfort Care Code Status Assessed: No Physician Review: Patient Assessed, Agree with Above Assessment and Plan Critical Care: No Time Spent Managing Pts Care (In Minutes): 20
[2020-08-27] MEDS: ENOXAPARIN 30 MG/0.3 ML SQ SCH (16:41)
--- NOTE | 2020-08-27 19:45 | PN ---
Date of Progress Note: 08/27/2020 Subjective: The patient was admitted with chronic kidney disease, CVA, hypertension. The patient fo und to be nephrotic proteinuria. The patient used to be on dialysis. He is weaned from dialysis 1 m onth ago. Physical Examination: Vital Signs: Blood pressure 166/74, pulse of 64, afebrile. The patient had good urine output of 130 0. Chest: Clear to auscultation. Heart: S1, S2. Regular. Abdomen: Soft, nontender. Extremities: No edema. Neuro: Alert, aphasic. Right weakness. . Laboratory Data: H and H 9.4/27.4. Sodium 145, potassium 4.6, bicarb 23, BUN 48, creatinine 2.8, GF R 23, uric acid 7.9, phosphorus 3.3, calcium 7.8. Iron saturation of 44, ferritin 549, albumin 3, co rrected calcium is 8.6. Serum protein electrophoresis is still pending. Folate more than 20, B12 51 2. TSH 4.7. PTH is still pending. PC ratio is 3.6. Current Medications: The patient on its include: 1.Aspirin. 2.Flomax. 3.Plavix. 4.Lovenox. 5.Amlodipine 10 mg. 6.Atorvastatin. 7.Carvedilol 3.125. 8.Clonidine 0.1 t.i.d. 9.Hydralazine isosorbide. 10.Normal saline. Assessment And Plan: 1.Chronic kidney disease, stage 4, status post acute kidney injury. Few months ago, required dialys is, weaned up currently of dialysis for more than 4 weeks. I do not see the need to initiate any joel al replacement therapy as no hyperkalemia, no acidosis, no uremia. I am going to continue to monitor the patient. The patient has normal size kidney with nephrotic-range proteinuria with the presence of the CVA and nephrotic range of proteinuria. I am going to start the patient on low dose of LESVIA in hibitor for kidney protection. 2.Hypertension, not controlled. Yesterday, we start amlodipine and carvedilol with clonidine. Bloo d pressure started trending down. I am going to add lisinopril. Discontinue IV fluid and we will mo nitor the patient. 3.Anemia of chronic kidney disease. Hemoglobin on acceptable range. Currently, I am going to avoid giving any DICK giving the acute CVA. 4.Diabetes as by primary. 5.Cerebrovascular accident. We will follow up with Neurology. RICK/MAREK Voice ID: [id number] Report ID: [id number]
[2020-08-27] MEDS: ATORVASTATIN 80 MG TAB PO SCH (20:47)
[2020-08-28] MEDS: carvediloL 3.125 MG TAB PO SCH ×2 (06:00→17:18)
[2020-08-28 06:25] LABS: Absolute Lymphocytes (CBC) 1.5 K/uL (0.7-4.9); Basophils % 0.8 % (0-1.3); Hematocrit 25.4 % (39.6-49.0); Lymphocytes % 25.3 % (15.3-44.8); MPV 8.6 fL (7.6-11.3); RBC Red Blood Cell Count 2.79 M/uL (4.33-5.43)
[2020-08-28 06:42] LABS: Bilirubin Total 0.3 mg/dL (0.2-1.0); Phosphorus 4.2 mg/dL (2.5-4.9); Potassium 4.8 mmol/L (3.5-5.1); Protein, Total 6.1 g/dL (6.4-8.2)
[2020-08-28] MEDS: INSULIN -REGULAR HUMAN 50 UNIT/0.5 ML ML SQ SCH ×4 (07:30→21:26)
[2020-08-28] MEDS: ISOSORBIDE MONO SR 30 MG TAB PO SCH (08:40)
[2020-08-28] MEDS: ASPIRIN EC 81 MG TAB PO SCH (08:40)
[2020-08-28] MEDS: TAMSULOSIN 0.4 MG SR CAP PO SCH (08:40)
[2020-08-28] MEDS: cloNIDine HCL 0.1 MG TAB PO SCH ×3 (08:40→21:25)
[2020-08-28] MEDS: CLOPIDOGREL 75 MG TABLET PO SCH (08:40)
[2020-08-28] MEDS: FOLIC ACID 1 MG TABLET PO SCH ×2 (08:40→21:26)
[2020-08-28] MEDS: AMLODIPINE 10 MG TAB PO SCH (08:41)
[2020-08-28] MEDS: lisinopriL 5 MG TAB PO SCH (08:41)
--- NOTE | 2020-08-28 15:15 | P.PN ---
Subjective Date of Service: 08/28/20 Primary Care Provider: Hunter Chief Complaint: CVA Subjective: No new changes Review of Systems 10-point ROS is otherwise unremarkable Neurological: Confusion Physical Examination - Vital Signs Temperature: 97.1 F Blood Pressure: 177/79 Pulse: 56 Respirations: 18 Pulse Ox (%): 100 - Physical Exam General: Alert, In no apparent distress, Confused HEENT: Atraumatic, PERRLA, EOMI Neck: Supple, JVD not distended Respiratory: Clear to auscultation bilaterally, Normal air movement Cardiovascular: Regular rate/rhythm, Normal S1 S2 Gastrointestinal: Normal bowel sounds, No tenderness Musculoskeletal: No tenderness Integumentary: No rashes Neurological: Normal speech, Normal tone, Normal affect Lymphatics: No axilla or inguinal lymphadenopathy Assessment & Plan - Problems (Diagnosis) (1) CVA (cerebral vascular accident) Current Visit: Yes Status: Acute Plan: Will admitt to the telemetry Order a mri. Consult Dr. Holman. Will start folic acid. Will start bp treatment in the morning. However for now we may be using permissive hypercapnia 08/28 He is confused still. Will work with PT. discuss with social media manager if her needs placement. Qualifiers: CVA mechanism: unspecified Qualified Code(s): I63.9 - Cerebral infarction, unspecified (2) ESRD (end stage renal disease) Current Visit: Yes Status: Chronic Plan: Patient has been refusing dialysis recently and removed his catheter. The patient was referred to Dr Schaeffer and did not follow up with him. Will consult him and see if he will accept dialysis at this time. 08/27 Normal kidney ultrasound. (3) HTN (hypertension) Current Visit: Yes Status: Chronic Plan: Will restart isosorbide in the morning. (4) Diabetes 1.5, managed as type 2 Current Visit: Yes Status: Acute Plan: Patient had a fasting sugar of 300 He had not given a history of diabetes in the past. will start hm on a sliding scale. start half-way insulin when he starts eating 08/26 Chronic changes of the feet. He had a surgical ampuatation of the left 5th toe. (5) Right hand pain Current Visit: Yes Status: Acute Plan: has been going on for a while. However will order xrays. His neighbor stated he had a fracture a while ago. 6/27 Xrays of the hand are normal Discharge Plan: Home Plan to discharge in: 24 Hours - Code Status/Comfort Care Code Status Assessed: No Physician Review: Patient Assessed, Agree with Above Assessment and Plan Critical Care: No Time Spent Managing Pts Care (In Minutes): 20
[2020-08-28] MEDS: ENOXAPARIN 30 MG/0.3 ML SQ SCH (17:19)
[2020-08-28] MEDS: ATORVASTATIN 80 MG TAB PO SCH (21:26)
--- NOTE | 2020-08-28 22:39 | PN ---
Date of Progress Note: 08/28/2020 Chief Complaint: Elevated BUN and creatinine level, hypertension, acute on chronic kidney injury. Subjective: The patient has multiple medical problems including diabetes mellitus complicated by marah ropathy and nephropathy, history of hypertension, chronic kidney disease stage 4, history of acute ki dney injury secondary to uncontrolled hypertension and hypertensive crisis. The patient required corey lysis and was weaned off dialysis. Review of Systems: Denies PND or orthopnea. Physical Examination: Lungs: Clear to auscultation bilaterally. Heart: S1, S2. Abdomen: Soft, benign. Extremities: No edema. Impression And Plan: 1.Acute kidney injury on chronic kidney stage 4. Previously, the patient required dialysis. Contin ue management for chronic kidney disease stage 4. Continue blood pressure medication. 2.Anemia. The patient has history of anemia due to chronic kidney disease. 3.Diabetes mellitus. Continue insulin. 4.The patient developed worsening of the renal function. The patient may require dialysis in the ne ar future. Currently, GFR is ranging from 17 to 23. Continue to monitor renal function. Continue a dequate hydration by mouth. 5.Renal osteodystrophy. Phosphorus level is controlled. 6.Hypoalbuminemia secondary to diabetic kidney disease. The patient is undergoing workup for monocl onal gammopathy and lab work is pending. 7.Hypertension. Adjust blood pressure medication for target systolic blood pressure 120. EB/MODL Voice ID: [id number] Report ID: [id number]
[2020-08-29] MEDS: carvediloL 3.125 MG TAB PO SCH ×2 (06:17→17:10)
[2020-08-29 06:36] LABS: Albumin 2.9 g/dL (3.4-5.0); Phosphorus 4.6 mg/dL (2.5-4.9)
[2020-08-29] MEDS: INSULIN -REGULAR HUMAN 50 UNIT/0.5 ML ML SQ SCH ×4 (07:30→21:08)
--- NOTE | 2020-08-29 08:43 | ECHO ---
HEIGHT: 5 ft 6 in WEIGHT: 150 lb 0 oz DATE OF STUDY: 08/28/[address]: Enrico Samuel PAC 2-DIMENSIONAL: YES M.MODE: YES DOPPLER: YES COLOR FLOW: YES TDS: NO PORTABLE: NO DEFINITY: NO BUBBLE STUDY: NO DIAGNOSIS: CEREBRAL INFARCTION CARDIAC HISTORY: CATHERIZATION: SURGERY: PROSTHETIC VALVE: PACEMAKER: MEASUREMENTS (cm) DIASTOLIC (NORMALS) SYSTOLIC (NORMALS) IVSd 1.1 (0.6-1.2) LA Diam 4.4 (1.9-4.0) LVEF 55% LVIDd 5.3 (3.5-5.7) LVIDs 3.8 (2.0-3.5) %FS 29% LVPWd 1.2 (0.6-1.2) Ao Diam 2.8 (2.0-3.7) 2 DIMENSIONAL ASSESSMENT: RIGHT ATRIUM: NORMAL LEFT ATRIUM: DILATED RIGHT VENTRICLE: NORMAL LEFT VENTRICLE: NORMAL TRICUSPID VALVE: NORMAL MITRAL VALVE: NORMAL PULMONIC VALVE: NORMAL AORTIC VALVE: NORMAL PERICARDIAL EFFUSION: NONE AORTIC ROOT: NORMAL LEFT VENTRICULAR WALL MOTION: NORMAL DOPPLER/COLOR FLOW: MILD TRICUSPID AND MITRAL REGURGITATION. COMMENTS: NORMAL LEFT VENTRICULAR SIZE AND FUNCTION. LEFT ATRIAL ENLARGEMENT. MILD TRICUSPID AND MITRAL REGURGITATION. NO VEGETATION OR THROMBUS. TECHNOLOGIST: Randy ARCHULETA
[2020-08-29] MEDS: ISOSORBIDE MONO SR 60 MG TAB PO SCH (09:05)
[2020-08-29] MEDS: lisinopriL 5 MG TAB PO SCH (09:06)
[2020-08-29] MEDS: TAMSULOSIN 0.4 MG SR CAP PO SCH (09:06)
[2020-08-29] MEDS: ASPIRIN EC 81 MG TAB PO SCH (09:06)
[2020-08-29] MEDS: FOLIC ACID 1 MG TABLET PO SCH ×2 (09:06→21:09)
[2020-08-29] MEDS: AMLODIPINE 10 MG TAB PO SCH (09:06)
[2020-08-29] MEDS: cloNIDine HCL 0.1 MG TAB PO SCH ×3 (09:06→21:09)
[2020-08-29] MEDS: CLOPIDOGREL 75 MG TABLET PO SCH (09:07)
[2020-08-29] MEDS ORDERED: EPOETIN ALFA-EPBX 10,000 UNIT/ML VIAL SQ SCH (12:15)
[2020-08-29] MEDS: CALCITROL 0.25 MCG CAP PO SCH (13:03)
--- NOTE | 2020-08-29 16:11 | PN ---
Date of Progress Note: 08/29/2020 History Of Present Illness: The patient was admitted with CVA, aphasia and uncontrolled blood pressu re. The patient had chronic kidney disease, required dialysis, weaned from dialysis almost 1 month a go. The patient was noncompliant with dialysis. The patient's last dialysis more than a month. The patient symptomatic, kidney function being stable with GFR above 18. Physical Examination: Vital Signs: When I saw the patient; blood pressure 153/69, pulse of 60 afebrile. The patient had go od urine output of 900. Physical Examination: Chest: Clear to auscultation. Heart: S1, S2, regular. Abdomen: Soft, nontender. Extremities: No edema. Neuro: Alert, slurred speech. denies any focality. Laboratory Data: H and H 8.7/25.4. Sodium 144, potassium 5, bicarb 23, BUN 53, creatinine 2.9, GFR 21, calcium 8, phosphorous 4.6. Serum protein electrophoresis is still pending. PTH 240. Vitamin D still pending. PC ratio 3.6. Current Medications: The patient on include: 1.Aspirin. 2.Plavix. 3.Lovenox. 4.Amlodipine. 5.Atorvastatin. 6.Carvedilol 3.125. 7.Clonidine. 8.Isosorbide. 9.Lisinopril 5 mg. 10.Folic acid. 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 No need to resume dialysis. We will continue to monitor the patient currently, tolerating LESVIA inhibitor. We will follow up. 2.Nephrotic range of proteinuria. Serum protein electrophoresis is still pending. The patient tole rate LESVIA inhibitor. We will continue to follow up. 3.Anemia of chronic kidney disease. Iron deficiency anemia has been ruled out. I am going to give the patient a single dose of Retacrit and we will follow up the patient. 4.Secondary hyperparathyroidism. We will start the patient on calcitriol and we will follow up. 5.Hypertension, controlled. We just start LESVIA inhibitor. We will follow up response for the patien t. 6.Diabetes as by primary. 7.Hyperkalemia, resolved. 8.cerebrovascular accident. We will follow up with Neurology. Continue PT/OT. RICK/MAREK Voice ID: [id number] Report ID: [id number]
[2020-08-29] MEDS: ENOXAPARIN 30 MG/0.3 ML SQ SCH (17:09)
--- NOTE | 2020-08-29 17:10 | P.PN ---
Subjective Date of Service: 08/29/20 Primary Care Provider: Hunter Chief Complaint: CVA Subjective: No new changes Review of Systems 10-point ROS is otherwise unremarkable Neurological: Change in Speech, Confusion Physical Examination - Vital Signs Temperature: 97.3 F Blood Pressure: 118/55 Pulse: 52 Respirations: 16 Pulse Ox (%): 99 - Physical Exam General: Alert, In no apparent distress HEENT: Atraumatic, PERRLA, EOMI Neck: Supple, JVD not distended Respiratory: Clear to auscultation bilaterally, Normal air movement Cardiovascular: Regular rate/rhythm, Normal S1 S2 Gastrointestinal: Normal bowel sounds, No tenderness Musculoskeletal: No tenderness Integumentary: No rashes Neurological: Normal speech, Normal tone, Normal affect Lymphatics: No axilla or inguinal lymphadenopathy Assessment & Plan - Problems (Diagnosis) (1) CVA (cerebral vascular accident) Current Visit: Yes Status: Acute Plan: Will admitt to the telemetry Order a mri. Consult Dr. Holman. Will start folic acid. Will start bp treatment in the morning. However for now we may be using permissive hypercapnia 08/29 Patient has confusion and aphasia. he lives alone. Will consider halfway placement for him Qualifiers: CVA mechanism: unspecified Qualified Code(s): I63.9 - Cerebral infarction, unspecified (2) ESRD (end stage renal disease) Current Visit: Yes Status: Chronic Plan: Patient has been refusing dialysis recently and removed his catheter. The patient was referred to Dr Schaeffer and did not follow up with him. Will consult him and see if he will accept dialysis at this time. 08/27 Normal kidney ultrasound. (3) HTN (hypertension) Current Visit: Yes Status: Chronic Plan: Will restart isosorbide in the morning. (4) Diabetes 1.5, managed as type 2 Current Visit: Yes Status: Acute Plan: Patient had a fasting sugar of 300 He had not given a history of diabetes in the past. will start hm on a sliding scale. 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 He had a surgical ampuatation of the left 5th toe. (5) Right hand pain Current Visit: Yes Status: Acute Plan: has been going on for a while. However will order xrays. His neighbor stated he had a fracture a while ago. 6/27 Xrays of the hand are normal Discharge Plan: LTAC Plan to discharge in: 24 Hours - Code Status/Comfort Care Code Status Assessed: No Code Status: Full Code Physician Review: Patient Assessed, Agree with Above Assessment and Plan Critical Care: No Time Spent Managing Pts Care (In Minutes): 20
[2020-08-29] MEDS: ATORVASTATIN 80 MG TAB PO SCH (21:09)
[2020-08-30] MEDS: carvediloL 3.125 MG TAB PO SCH ×2 (05:10→17:12)
[2020-08-30 05:59] LABS: Albumin 3.1 g/dL (3.4-5.0); Phosphorus 4.2 mg/dL (2.5-4.9); Potassium 4.8 mmol/L (3.5-5.1)
[2020-08-30] MEDS: INSULIN -REGULAR HUMAN 50 UNIT/0.5 ML ML SQ SCH ×5 (07:30→21:06)
[2020-08-30] MEDS: cloNIDine HCL 0.1 MG TAB PO SCH ×3 (09:00→21:00)
[2020-08-30] MEDS: TAMSULOSIN 0.4 MG SR CAP PO SCH (09:04)
[2020-08-30] MEDS: ASPIRIN EC 81 MG TAB PO SCH (09:04)
[2020-08-30] MEDS: FOLIC ACID 1 MG TABLET PO SCH ×2 (09:05→21:05)
[2020-08-30] MEDS: AMLODIPINE 10 MG TAB PO SCH (09:05)
[2020-08-30] MEDS: CLOPIDOGREL 75 MG TABLET PO SCH (09:05)
[2020-08-30] MEDS: ISOSORBIDE MONO SR 60 MG TAB PO SCH (09:05)
[2020-08-30] MEDS: lisinopriL 5 MG TAB PO SCH (09:05)
[2020-08-30] MEDS ORDERED: POTASSIUM CL SA 10 MEQ TAB PO ONE (10:07)
--- NOTE | 2020-08-30 11:42 | PN ---
Date of Progress Note: 08/30/2020 Subjective: The patient was admitted with CVA. The patient had acute kidney injury before, required dialysis, weaned from dialysis, last dialysis more than 4 weeks. Physical Examination: Vital Signs: When I saw the patient; blood pressure 163/63, pulse of 58, afebrile. Chest: Clear to auscultation. Heart: S1, S2. Regular. Abdomen: Soft, nontender. Extremity: No edema. Neuro: Slurred speech. No focality. Laboratory Data: WBC 5.8, H and H 8.7/25.4. Sodium 142, potassium 4.8, bicarb 21, BUN 56, creatinin e 2.8, GFR 22, calcium of 8, phosphorus 4.2, albumin 3.1, corrected calcium 8.9. PC ratio of 3.6. S shaq protein electrophoresis is still pending. Vitamin D still pending. PTH 240. Current Medications: The patient on include; 1.Aspirin. 2.Flomax. 3.Plavix. 4.Lovenox. 5.Amlodipine 10 mg. 6.Atorvastatin. 7.Carvedilol 3.125 b.i.d. 8.Clonidine 0.1 t.i.d. 9.Isosorbide 60. 10.Lisinopril 5 mg daily. 11.Folic acid. 12.Calcitriol. Assessment And Plan: 1.Chronic kidney disease advanced stage IV secondary to diabetes nephropathy, nephrotic range of pro teinuria, normal size kidney, status post acute kidney injury required dialysis, weaned from it. No uremia, no hyperkalemia, or acidosis. The patient stable. No need to resume dialysis. We will cont inue to monitor the patient. Continue LESVIA inhibitor as the patient tolerating. 2.Hypertension, not controlled with the presence of cerebrovascular accident. I am going to go ahea d and increase lisinopril to 10 mg, increase clonidine 0.2 t.i.d. and we will monitor the patient. 3.Hypokalemia. We will supplement. Increase lisinopril. 4.Secondary hyperparathyroidism. The patient was started on calcitriol. We will follow up. 5.Hypokalemia. We will supplement. Increase lisinopril. 6.Nephrotic range of proteinuria. Increase lisinopril. 7.Cerebrovascular accident. Continue to follow up with primary and Neurology. Continue PT, OT. 8.Anemia of chronic kidney disease. Serum protein electrophoresis is still pending. The patient re ceived Retacrit. We will follow up. YOGESH Voice ID: [id number] Report ID: [id number]
[2020-08-30] MEDS: ENOXAPARIN 30 MG/0.3 ML SQ SCH (17:13)
[2020-08-30] MEDS ORDERED: GLUCAGON 1 MG/VIAL IM PRN (17:44)
--- NOTE | 2020-08-30 17:46 | P.PN ---
Subjective Date of Service: 08/30/20 Primary Care Provider: Hunter Chief Complaint: CVA Subjective: No new changes Review of Systems Neurological: Change in Speech, Confusion Physical Examination - Vital Signs Temperature: 97.8 F Blood Pressure: 150/62 Pulse: 62 Respirations: 18 Pulse Ox (%): 100 - Physical Exam General: Alert, In no apparent distress HEENT: Atraumatic, PERRLA, EOMI Neck: Supple, JVD not distended Respiratory: Clear to auscultation bilaterally, Normal air movement Cardiovascular: Regular rate/rhythm, Normal S1 S2 Gastrointestinal: Normal bowel sounds, No tenderness Musculoskeletal: No tenderness Integumentary: No rashes Neurological: Normal speech, Normal tone, Normal affect Lymphatics: No axilla or inguinal lymphadenopathy - Studies Microbiology Data (last 24 hrs): 08/25/20 11:14 Blood - Blood Aerobic Blood Culture - Final No growth in 5 days. 08/25/20 11:14 Blood - Blood Anaerobic Blood Culture - Final No growth in 5 days. 08/25/20 11:19 Blood - Blood Aerobic Blood Culture - Final No growth in 5 days. 08/25/20 11:19 Blood - Blood Anaerobic Blood Culture - Final No growth in 5 days. Assessment & Plan - Problems (Diagnosis) (1) CVA (cerebral vascular accident) Current Visit: Yes Status: Acute Plan: Will admitt to the telemetry Order a mri. Consult Dr. Holman. Will start folic acid. Will start bp treatment in the morning. However for now we may be using permissive hypercapnia 08/30 Will work with health care social worker for placement Qualifiers: CVA mechanism: unspecified Qualified Code(s): I63.9 - Cerebral infarction, unspecified (2) ESRD (end stage renal disease) Current Visit: Yes Status: Chronic Plan: Patient has been refusing dialysis recently and removed his catheter. The patient was referred to Dr Schaeffer and did not follow up with him. Will consult him and see if he will accept dialysis at this time. 08/27 Normal kidney ultrasound. (3) HTN (hypertension) Current Visit: Yes Status: Chronic Plan: Will restart isosorbide in the morning. (4) Diabetes 1.5, managed as type 2 Current Visit: Yes Status: Acute Plan: Patient had a fasting sugar of 300 He had not given a history of diabetes in the past. will start hm on a sliding scale. 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 He had a surgical ampuatation of the left 5th toe. (5) Right hand pain Current Visit: Yes Status: Acute Plan: has been going on for a while. However will order xrays. His neighbor stated he had a fracture a while ago. 08/27 Xrays of the hand are normal Physician Review: Patient Assessed, Agree with Above Assessment and Plan
[2020-08-30] MEDS ORDERED: D50W 25 GM/50 ML VIAL IV PRN (17:50)
[2020-08-30] MEDS: ATORVASTATIN 80 MG TAB PO SCH (21:04)
[2020-08-30 21:05] VITALS: O2SAT 98
[2020-08-30] MEDS: INSULIN GLARGINE 100 UNITS/ML SQ SCH (21:06)
[2020-08-30 22:42] LABS: Vitamin D 1,25-Dihydroxy Total 16 pg/mL (18-72); Vitamin D,1,25-OH2, D2 <8 pg/mL
[2020-08-31] MEDS: carvediloL 3.125 MG TAB PO SCH ×2 (06:04→17:33)
[2020-08-31 06:22] LABS: Albumin 3.2 g/dL (3.4-5.0); Phosphorus 3.2 mg/dL (2.5-4.9)
[2020-08-31 06:26] LABS: Potassium 6.4 mmol/L (3.5-5.1)
[2020-08-31] MEDS: INSULIN -REGULAR HUMAN 50 UNIT/0.5 ML ML SQ SCH ×4 (07:30→20:33)
[2020-08-31] MEDS: cloNIDine HCL 0.1 MG TAB PO SCH ×3 (08:34→20:32)
[2020-08-31] MEDS: ASPIRIN EC 81 MG TAB PO SCH (08:34)
[2020-08-31] MEDS: AMLODIPINE 10 MG TAB PO SCH (08:34)
[2020-08-31] MEDS: CLOPIDOGREL 75 MG TABLET PO SCH (08:35)
[2020-08-31] MEDS: TAMSULOSIN 0.4 MG SR CAP PO SCH (08:35)
[2020-08-31] MEDS: ISOSORBIDE MONO SR 60 MG TAB PO SCH (08:35)
[2020-08-31] MEDS: FOLIC ACID 1 MG TABLET PO SCH ×2 (08:35→20:32)
[2020-08-31] MEDS: lisinopriL 10 MG TAB PO SCH (08:35)
[2020-08-31] MEDS ORDERED: SOD POLYSTYREN SUL 15 GM/60 ML UCUP PO ONE (10:00)
[2020-08-31] MEDS: CALCITROL 0.25 MCG CAP PO SCH (13:09)
--- NOTE | 2020-08-31 13:22 | P.PN ---
Subjective Date of Service: 08/31/20 Primary Care Provider: Hunter Chief Complaint: CVA Subjective: New changes (hyperkaemia) Review of Systems 10-point ROS is otherwise unremarkable General: Weakness Neurological: Change in Speech, Confusion Physical Examination - Vital Signs Temperature: 97.4 F Blood Pressure: 125/58 Pulse: 54 Respirations: 16 Pulse Ox (%): 99 - Physical Exam General: Alert, In no apparent distress HEENT: Atraumatic, PERRLA, EOMI Neck: Supple, JVD not distended Respiratory: Clear to auscultation bilaterally, Normal air movement Cardiovascular: Regular rate/rhythm, Normal S1 S2 Gastrointestinal: Normal bowel sounds, No tenderness Musculoskeletal: No tenderness Integumentary: No rashes Neurological: Normal speech, Normal tone, Normal affect Lymphatics: No axilla or inguinal lymphadenopathy - Studies Microbiology Data (last 24 hrs): 08/25/20 11:14 Blood - Blood Aerobic Blood Culture - Final No growth in 5 days. 08/25/20 11:14 Blood - Blood Anaerobic Blood Culture - Final No growth in 5 days. 08/25/20 11:19 Blood - Blood Aerobic Blood Culture - Final No growth in 5 days. 08/25/20 11:19 Blood - Blood Anaerobic Blood Culture - Final No growth in 5 days. Assessment & Plan - Problems (Diagnosis) (1) CVA (cerebral vascular accident) Current Visit: Yes Status: Acute Plan: Will admitt to the telemetry Order a mri. Consult Dr. Holman. Will start folic acid. Will start bp treatment in the morning. However for now we may be using permissive hypercapnia 08/31 patient is doing well with PT. He has been rejected by inpt rehab. Will arrange for home health and plan for discharge tomorrow Qualifiers: CVA mechanism: unspecified Qualified Code(s): I63.9 - Cerebral infarction, unspecified (2) ESRD (end stage renal disease) Current Visit: Yes Status: Chronic Plan: Patient has been refusing dialysis recently and removed his catheter. The patient was referred to Dr Schaeffer and did not follow up with him. Will consult him and see if he will accept dialysis at this time. 08/27 Normal kidney ultrasound. (3) HTN (hypertension) Current Visit: Yes Status: Chronic Plan: Will restart isosorbide in the morning. (4) Diabetes 1.5, managed as type 2 Current Visit: Yes Status: Acute Plan: Patient had a fasting sugar of 300 He had not given a history of diabetes in the past. will start hm on a sliding scale. start half-way insulin when he starts eating 08/26 Chronic changes of the feet. He had a surgical ampuatation of the left 5th toe. (5) Right hand pain Current Visit: Yes Status: Acute Plan: has been going on for a while. However will order xrays. His neighbor stated he had a fracture a while ago. 08/27 Xrays of the hand are normal (6) Hyperkalemia Current Visit: Yes Status: Acute Plan: will give him kayexlate follow up with repeat labs in the morning Physician Review: Patient Assessed, Agree with Above Assessment and Plan Critical Care: No Time Spent Managing Pts Care (In Minutes): 20
[2020-08-31] MEDS: ENOXAPARIN 30 MG/0.3 ML SQ SCH (17:33)
[2020-08-31] MEDS: ATORVASTATIN 80 MG TAB PO SCH (20:31)
[2020-08-31] MEDS: INSULIN GLARGINE 100 UNITS/ML SQ SCH (20:32)
[2020-08-31 20:37] LABS: Albumin, (SPE) 3.2 g/dL (3.8-4.8); Alpha-1-Globulins 0.3 g/dL (0.2-0.3); Alpha-2-Globulins 0.8 g/dL (0.5-0.9); Gamma Globulins 0.8 g/dL (0.8-1.7); INTERPRETATION REPORT
[2020-09-01] MEDS: carvediloL 3.125 MG TAB PO SCH ×2 (05:29→17:11)
[2020-09-01 06:52] LABS: Potassium 4.3 mmol/L (3.5-5.1)
--- NOTE | 2020-09-01 07:28 | P.PN ---
Subjective Date of Service: 09/01/20 Primary Care Provider: Hunter Chief Complaint: CVA Subjective: No new changes Physical Examination - Vital Signs Temperature: 98.0 F Blood Pressure: 156/68 Pulse: 60 Respirations: 16 Pulse Ox (%): 98 - Physical Exam General: In no apparent distress HEENT: Atraumatic, Normocephalic Neck: Supple, JVD not distended Respiratory: Normal air movement Cardiovascular: No rubs, No murmurs Gastrointestinal: Soft and benign, No guarding Musculoskeletal: No clubbing, No warmth Integumentary: No warmth Neurological: Normal speech, Normal tone Lymphatics: No axilla or inguinal lymphadenopathy Urinary: Other (No bladder distention) External genitalia: Deferred Rectal: Deferred Assessment And Plan - Plan 1. Chronic kidney disease advanced stage IV secondary to diabetes nephropathy, nephrotic range of proteinuria, normal size kidney, status post acute kidney injury required dialysis, weaned from it. Renal fxn at baseline. No need to resume dialysis. We will continue to monitor the patient. Continue LESVIA inhibitor as the patient tolerating, dc when GFR 20 or less. 2. Hypertension. Cont current anti-hypertensive medication regimen. 3. Secondary hyperparathyroidism. Cont calcitriol. 4. Nephrotic range of proteinuria. Cont lisinopril. 5. Cerebrovascular accident. Continue to follow up with primary and Neurology. Continue PT, OT. 8. Anemia of chronic kidney disease. Received Retacrit. Monitor H/H. 9. Ok to dc today from renal standpoint. Physician Review: Patient Assessed, Agree with Above Assessment and Plan
[2020-09-01] MEDS: INSULIN -REGULAR HUMAN 50 UNIT/0.5 ML ML SQ SCH ×3 (07:30→16:30)
--- NOTE | 2020-09-01 08:08 | P.DS ---
Admission Date: 08/25/20 Discharge Date: 09/01/20 Primary Care Provider: Hunter Disposition: ROUTINE DISCHARGE Discharge Condition: FAIR Reason for Admission: CVA - Problems (1) CVA (cerebral vascular accident) Current Visit: Yes Status: Acute Qualifiers: CVA mechanism: unspecified Qualified Code(s): I63.9 - Cerebral infarction, unspecified (2) ESRD (end stage renal disease) Current Visit: Yes Status: Chronic (3) HTN (hypertension) Current Visit: Yes Status: Chronic (4) Diabetes 1.5, managed as type 2 Current Visit: Yes Status: Acute (5) Right hand pain Current Visit: Yes Status: Acute (6) Hyperkalemia Current Visit: Yes Status: Acute Brief History of Present Illness: Patient came into the office today He has stopped taking his dialysis about a month ago Has removed his cather. The patient was not able to speak at all. Was not able to write legible to tell us what was going on The patients neighbor (Lowell Johnson [phone]) came and stated this has been going on for the past 2 days. Ambulance was called and the patient was taken to [facility]. Found to have a subacute infract infract on ct. Decided to admit. Hospital Course: Patient was admitted with a stroke. He is doing well. was denied inpatient nursing. Will send him home with home health and home PT. Have him continue asa, plavix, folic acid. Started the patient on levemir. Seems to have good control. Vital Signs/Physical Exam: Temp Pulse Resp BP Pulse Ox 98.0 F 60 16 156/68 H 98 09/01/20 07:28 09/01/20 07:28 09/01/20 07:28 09/01/20 07:28 09/01/20 07:28 General: Alert, In no apparent distress HEENT: Atraumatic, PERRLA, EOMI Neck: Supple, JVD not distended Respiratory: Clear to auscultation bilaterally, Normal air movement Cardiovascular: Regular rate/rhythm, Normal S1 S2 Gastrointestinal: Normal bowel sounds, No tenderness Musculoskeletal: No tenderness Integumentary: No rashes Neurological: Normal tone, Normal affect, Abnormal speech Lymphatics: No axilla or inguinal lymphadenopathy Laboratory Data at Discharge: WBC 5.80 K/uL (4.3-10.9) 08/28/20 06:14 Hgb 8.7 g/dL (13.6-17.9) L 08/28/20 06:14 Hct 25.4 % (39.6-49.0) L 08/28/20 06:14 Plt Count 247 K/uL (152-406) 08/28/20 06:14 PT 10.6 SECONDS (9.5-12.5) 08/25/20 11:19 INR 0.92 08/25/20 11:19 Sodium 142 mmol/L (136-145) 09/01/20 06:02 Potassium 4.3 mmol/L (3.5-5.1) 09/01/20 06:02 BUN 60 mg/dL (7-18) H 09/01/20 06:02 Creatinine 2.99 mg/dL (0.55-1.3) H 09/01/20 06:02 Glucose 51 mg/dL (74-106) L 09/01/20 06:02 Uric Acid 7.9 mg/dL (3.5-7.2) H 08/27/20 07:13 Phosphorus 3.2 mg/dL (2.5-4.9) 08/31/20 05:41 Magnesium 2.3 mg/dL (1.8-2.4) 08/25/20 11:19 Total Bilirubin 0.3 mg/dL (0.2-1.0) 08/28/20 06:14 AST 15 U/L (15-37) 08/28/20 06:14 ALT 23 U/L (12-78) 08/28/20 06:14 Alkaline Phosphatase 119 U/L (45-117) H 08/28/20 06:14 Troponin I 0.02 ng/mL (0.0-0.045) 08/26/20 06:32 Triglycerides 195 mg/dL (<150) H 08/26/20 06:32 Cholesterol 127 mg/dL (<200) 08/26/20 06:32 HDL Cholesterol 30 mg/dL (40-60) L 08/26/20 06:32 Cholesterol/HDL Ratio 4.23 08/26/20 06:32 Home Medications: Atorvastatin Calcium [Lipitor] 80 mg PO BEDTIME 08/25/20 Tamsulosin [Flomax*] 0.4 mg PO DAILY 08/25/20 Aspirin [Aspirin EC 81 MG] 81 mg PO BEDTIME 90 Days #90 tablet. 09/01/20 Clopidogrel Bisulfate [Plavix] 75 mg PO DAILY 90 Days #90 tablet 09/01/20 Folic Acid 1 mg PO DAILY 90 Days #90 tablet 09/01/20 Insulin Detemir [Levemir Flextouch] 10 unit SQ DAILY 30 Days #300 ml 09/01/20 Isosorbide Mononitrate [Isosorbide Mononitrate ER] 60 mg PO DAILY 90 Days #90 tab.er.24h 09/01/20 carvediloL [Coreg*] 3.125 mg PO BID 6AM 6PM tab 09/01/20 New Medications: Aspirin [Aspirin EC 81 MG] 81 mg PO BEDTIME 90 Days #90 tablet. Folic Acid 1 mg PO DAILY 90 Days #90 tablet Isosorbide Mononitrate [Isosorbide Mononitrate ER] 60 mg PO DAILY 90 Days #90 tab.er.24h Insulin Detemir [Levemir Flextouch] 10 unit SQ DAILY 30 Days #300 ml Clopidogrel Bisulfate [Plavix] 75 mg PO DAILY 90 Days #90 tablet Diet: ADA Activity: Ad tariq Followup: Butch Harrison MD [Primary Care Provider] - 1 Week Twan Carroll MD [ACTIVE - CAN ADMIT] - Physician Review: Patient Assessed, Agree with Above Assessment and Plan Time spent managing pt's care (in minutes): 30
[2020-09-01] MEDS: FOLIC ACID 1 MG TABLET PO SCH (08:34)
[2020-09-01] MEDS: AMLODIPINE 10 MG TAB PO SCH (08:34)
[2020-09-01] MEDS: CLOPIDOGREL 75 MG TABLET PO SCH (08:34)
[2020-09-01] MEDS: ISOSORBIDE MONO SR 60 MG TAB PO SCH (08:34)
[2020-09-01] MEDS: lisinopriL 10 MG TAB PO SCH (08:34)
[2020-09-01] MEDS: cloNIDine HCL 0.1 MG TAB PO SCH ×2 (08:35→15:36)
[2020-09-01] MEDS: ASPIRIN EC 81 MG TAB PO SCH (08:35)
[2020-09-01] MEDS: TAMSULOSIN 0.4 MG SR CAP PO SCH (08:36)
[2020-09-01] MEDS: ENOXAPARIN 30 MG/0.3 ML SQ SCH (17:11)
[2020-09-01 21:28] VITALS: BP 156/68; TEMP 98
== END 2020-09-01 19:00 | disposition home health service (06) | DRG 64 ==
LOC: ER 10:43 → ERHOLD 13:50 → 2ND 14:21
PROVIDERS: ADMIT Internal Medicine; ATTEND Internal Medicine
DX: I63.89 Other cerebral infarction (principal); N18.6 End stage renal disease; I12.0 Hypertensive chronic kidney disease with stage 5 chronic kidney disease or end stage renal disease; G81.91 Hemiplegia, unspecified affecting right dominant side; N17.9 Acute kidney failure, unspecified; N25.81 Secondary hyperparathyroidism of renal origin; E13.22 Other specified diabetes mellitus with diabetic chronic kidney disease; E13.40 Other specified diabetes mellitus with diabetic neuropathy, unspecified; I12.9 Hypertensive chronic kidney disease with stage 1 through stage 4 chronic kidney disease, or unspecified chronic kidney disease; E78.5 Hyperlipidemia, unspecified; D63.1 Anemia in chronic kidney disease; M79.641 Pain in right hand; N25.0 Renal osteodystrophy; E88.09 Other disorders of plasma-protein metabolism, not elsewhere classified; Z20.828 Contact with and (suspected) exposure to other viral communicable diseases
CPT/HCPCS: 36415; 70450; 70544; 70551; 71045; 76770; 80048; 80053; 80061; 80069; 80076; 81003; 81015; 82140; 82550; 82553; 82570; 82607; 82652; 82728; 82746; 82947; 83036; 83540; 83605; 83735; 83880; 83970; 84100; 84145; 84156; 84165; 84439; 84443; 84466; 84484; 84550; 85025; 85044; 85610; 87040; 92610; 93005; 93306; 93880; 93971; 96365; 96366; 96375; 97116; 97161; 97530; 99285; J0360; J1650; J1815; J7030; J7050; Q5106; U0003